=== PATIENT | female | born 1940 | race American Indian/Alaskan Native ===

== ENCOUNTER 2018-07-26 09:09 | Observation (INO) | payer MEDICARE ==
--- NOTE | 2018-07-26 10:52 | Emergency Department Report ---
HPI - General Chief Complaint: Hypoglycemia Time Seen by Provider: 07/26/18 10:21 - HPI HPI: 78-year-old -German female presents to the emergency department via EMS after she had an unresponsive episode this morning. The patient has a past medical history of asthma, hypertension and insulin-dependent diabetes. She took 15 units of her insulin, Humulin 70/30, last night for a blood sugar of about 300. This morning, her grandson found her with some snoring respirations but arousable to the point where she was drowsy and a little confused. They assume that her blood sugar was low so she was given a peppermint and EMS was called. When EMS got there her blood sugar was down at 65. They gave her some. They gave her some peanut butter and jelly, nasreen janice and oral glucose and her blood sugar went up to about 74, 10 minutes later. Patient is currently AAO3 with a complaint of some "heaviness" to the right arm and leg. She denies any headache, vision changes, slurred speech. Her primary care physician is Dr. Socrates Alex. The patient says that she has a normal breakfast but after that usually only has one can of cream of mushroom soup for dinner, and usually skips lunch because she is not hungry. No recent travel or sick contacts at home. ED Past Medical Hx - Past Medical History Previous Medical History?: Yes Hx Hypertension: Yes Hx Diabetes: Yes Hx Asthma: Yes - Surgical History Past Surgical History?: No - Social History Smoking Status: Never Smoker Substance Use Type: None - Medications Home Medications: Home Medications Medication Instructions Recorded Confirmed Last Taken Type ALBUTEROL Inhaler (OR & NICU) 2 puff IH Q6H PRN 07/26/18 07/26/18 Unknown History [Proair] Allopurinol [Zyloprim] 100 mg PO QDAY 07/26/18 07/26/18 Unknown History Atorvastatin (Nf) [Lipitor (Nf)] 10 mg PO DAILY 07/26/18 07/26/18 Unknown History Brimonidine Tartrate/Timolol 1 drop OU BID 07/26/18 07/26/18 Unknown History [Combigan 0.2%-0.5% Eye Drops] Gabapentin [Neurontin] 800 mg PO BID 07/26/18 07/26/18 Unknown History Insulin NPH Hum/Reg Insulin Hm 10 units SUB-Q QAM 07/26/18 07/26/18 Unknown History [Novolin 70-30 100 Unit/ml Vial] Potassium Chloride [K-Dur] 10 meq PO QDAY 07/26/18 07/26/18 Unknown History Spironolactone [Aldactone] 25 mg PO BID 07/26/18 07/26/18 Unknown History Theophylline Anhydrous ER [Theodur] 300 mg PO QDAY 07/26/18 07/26/18 Unknown History Vit B Comp No.3/Folic/C/Biotin 1 each PO QDAY 07/26/18 07/26/18 Unknown History [Gabrielle-Primo Rx Tablet] ED Review of Systems ROS: Stated complaint: HYPOGLYCEMIA Other details as noted in HPI Comment: All other systems reviewed and negative Constitutional: weakness. denies: chills, fever Eyes: denies: eye pain, vision change ENT: denies: ear pain, throat pain Respiratory: denies: cough, shortness of breath Cardiovascular: denies: chest pain, palpitations Gastrointestinal: denies: abdominal pain, vomiting Genitourinary: denies: dysuria, discharge Musculoskeletal: arthralgia (right shoulder). denies: back pain Skin: denies: rash, lesions Neurological: weakness, other (unresponsive episode). denies: headache Physical Exam - Physical Exam Physical Exam: GENERAL: The patient is well-developed well-nourished. HENT: Normocephalic. Atraumatic. Patient has moist mucous membranes. EYES: Extraocular motions are intact. Pupils equal reactive to light bilaterally. No nystagmus. NECK: Supple. Trachea is midline. CHEST/LUNGS: Clear to auscultation. There is no respiratory distress noted. HEART/CARDIOVASCULAR: Regular. There is no tachycardia. There is no murmur. ABDOMEN: Abdomen is soft, nontender. Patient has normal bowel sounds. There is no abdominal distention. SKIN: Skin is warm and dry. NEURO: The patient is awake, alert, and oriented. The patient is cooperative. The patient has no focal neurologic deficits. The patient has normal speech. Cranial nerves II through XII grossly intact. No pronator drift. MUSCULOSKELETAL: There is some mild tenderness to palpation of the right shoul asad. Patient has some chronic decreased left upper extremity extension and abduction. There is some mild right lower extremity weakness lifting the leg above the gurney when compared to the left side. ED Medical Decision Making - Lab Data Result diagrams: 07/26/18 11:08 07/26/18 11:08 - EKG Data -: EKG Interpreted by Me EKG shows normal: sinus rhythm, axis, intervals, QRS complexes (low voltage), ST-T waves Rate: normal - EKG Data When compared to previous EKG there are: previous EKG unavailable Interpretation: normal EKG - Radiology Data Radiology results: report reviewed, image reviewed interpreted by me: Chest x-ray does not show any acute process. There are no pleural effusions, obvious pneumonia and there is no pneumothorax. X-ray of the right shoulder does not show any fracture, dislocation, or any acute process. CT HEAD WITHOUT CONTRAST: HISTORY: Altered mental status. TECHNIQUE: Sequential 2.5mm CT images. COMPARISON: none. FINDINGS: Cerebral Parenchyma: Within normal limits. Cerebellum: Within normal limits. Brainstem: Within normal limits. Ventricles: Normal. Sella: Normal. Extra-axial spaces: Normal. Basal Cisterns: Normal. Intracranial Hemorrhage: None. Midline Shift: None. Calvarium: Normal. Sinuses: Normal. Mastoid Air Cells: Normal. Visualized Orbits: Normal. IMPRESSION: Cranial CT scan within normal limits. Transcribed By: TTR Dictated By: EROS KENNEDY JR, MD Electronically Authenticated By: EROS KENNEDY JR, MD Signed Date/Time: 07/26/18 1317 - Medical Decision Making This patient originally presented after having a transient unresponsive episode that seems like it may be related to some hypoglycemia. The blood sugar was only 65 when EMS arrived the patient says that she was awake and alert enough to eating a peppermint when she thought it may have been secondary to low blood sugar. The patient describes a heaviness to the right arm and leg. She denies any headache, vision changes, slurred speech or any other neurological deficits. On examination the patient does have some right lower extremity weakness when compared to the left. With these findings, and this unresponsive episode, I feel that the patient needs further evaluation. CT scan of the head without contrast did not show any bleed, shift, mass, ischemia, or any other acute process. Her blood sugar has been checked repeatedly and there has been no further episodes of hypoglycemia. Her labs are mostly unremarkable. Patient will be admitted to the hospital for further evaluation and treatment and was accepted for admission with hospitalist, Dr. Baxter. - Differential Diagnosis Hypoglycemia, TIA, CVA, Encephalopathy Critical Care Time: No Critical care attestation.: If time is entered above; I have spent that time in minutes in the direct care of this critically ill patient, excluding procedure time. ED Disposition Clinical Impression: Right sided weakness, Hypoglycemia, Unresponsive episode Disposition: OP ADMIT IP TO THIS HOSP Is pt being admited?: Yes Condition: Fair Time of Disposition: 17:27 - Assessment Assessment Interval: Baseline - Level of Consciousness 1a. Level of Consciousness: alert/keenly responsive - LOC Questions 1b. LOC Questions: answers both correctly - LOC Command 1c. LOC Commands: performs tasks correctly - Best Gaze 2. Best Gaze: normal - Visual 3. Visual: no visual loss - Facial Palsy 4. Facial Palsy: normal symmetrical movement - Motor Arm 5a. Motor Arm Left: no drift 5b. Motor Arm Right: no drift - Motor Leg 6a. Motor Leg Left: no drift 6b. Motor Leg Right: drift - Limb Ataxia 7. Limb Ataxia: absent - Sensory 8. Sensory: normal - Best Language 9. Best Language: no aphasia - Dysarthria 10. Dysarthria: normal - Extinction and Inattention 11. Extinction/Inattention: no abnormality - Scoring Total Score: 1 Stroke Severity: Minor Stroke
[2018-07-26 11:19] LABS: Basophils % (Auto) 0.7 % (0.0-1.8); Eosinophils # (Auto) 0.1 K/mm3 (0.0-0.4); Eosinophils % (Auto) 1.9 % (0.0-4.3); Hematocrit 36.3 % (30.3-42.9); Hemoglobin 11.5 gm/dl (10.1-14.3); Lymphocytes # (Auto) 0.7 K/mm3 (1.2-5.4); Mean Corpuscular HGB Conc 32 % (30-34); Mean Corpuscular Volume 72 fl (79-97); Monocytes # (Auto) 0.2 K/mm3 (0.0-0.8); Monocytes % (Auto) 5.9 % (0.0-7.3); Platelet Count 191 K/mm3 (140-440); Red Blood Count 5.02 M/mm3 (3.65-5.03); Red Cell Distribution Width 16.6 % (13.2-15.2)
--- NOTE | 2018-07-26 11:23 | XRay Report ---
RIGHT SHOULDER, 3 VIEWS: HISTORY: right shoulder pain. Mild osteopenia is suspected. Mild to moderate osteoarthritic changes are identified at the right shoulder. No evidence for displaced fracture, dislocation or ligamentous injury. The soft tissues are unremarkable. IMPRESSION: Osteopenia. Osteoarthritis. No acute process is noted.
--- NOTE | 2018-07-26 11:23 | XRay Report ---
AP CHEST: HISTORY: Altered mental status AP view of the chest demonstrates a normal mediastinal and cardiac contour with clear lungs and normal bony and soft tissue structures. IMPRESSION: No acute cardiopulmonary process.
[2018-07-26 11:30] LABS: INR 1.05 (0.87-1.13); Partial Thromboplastin Time 24.1 Sec. (24.2-36.6)
[2018-07-26] MEDS ORDERED: ANTIVERT PO ONE (11:39)
[2018-07-26] MEDS ORDERED: ANTIVERT ONE (11:43)
[2018-07-26 11:44] LABS: Alanine Aminotransferase 10 units/L (7-56); Albumin 3.3 g/dL (3.9-5); BUN/Creatinine Ratio 13; Blood Urea Nitrogen 10 mg/dL (7-17); Calcium 8.7 mg/dL (8.4-10.2); Hemolysis Index 4
--- NOTE | 2018-07-26 13:22 | Cat Scan Report ---
CT HEAD WITHOUT CONTRAST: HISTORY: Altered mental status. TECHNIQUE: Sequential 2.5mm CT images. COMPARISON: none. FINDINGS: Cerebral Parenchyma: Within normal limits. Cerebellum: Within normal limits. Brainstem: Within normal limits. Ventricles: Normal. Sella: Normal. Extra-axial spaces: Normal. Basal Cisterns: Normal. Intracranial Hemorrhage: None. Midline Shift: None. Calvarium: Normal. Sinuses: Normal. Mastoid Air Cells: Normal. Visualized Orbits: Normal. IMPRESSION: Cranial CT scan within normal limits.
[2018-07-26] MEDS ORDERED: PROVENTIL IH PRN (16:36)
[2018-07-26] MEDS ORDERED: TYLENOL PO PRN (16:36)
[2018-07-26] MEDS ORDERED: ZOFRAN IV PRN ×2 (16:36→17:06)
[2018-07-26] MEDS ORDERED: SODIUM CHLORIDE FLUSH SYRINGE 10 ML IV PRN ×2 (16:36→17:06)
--- NOTE | 2018-07-26 16:42 | History and Physical Report ---
History of Present Illness Chief complaint: My sugar got low History of present illness: 78 YO Female with HTN, DM, Asthma, Obesity Hypoventilation, presents to ED for evaluation. Pt states that she took 15 units of Humulin 70/30 overnight for an elevated blood sugar of about 300. Pt was found by her son upon wakinf from sleep to be confused and stuporous. Pt was given oral glucose load in anticipation of low blood glucose level. EMS was notified, and upon arrival the pataient was found to be in distress. Pt transported to [facility]. Pt seen and evaluated in ED. Upon interview patient reports of Right arm and leg weakness over the past 1 day as well as multiple episodes on acute onset of vision loss over the past 1 week. Pt denies headache, slurred speech, fever, chills, Chest pain, palpitations, NVD, Trauma, or recent ill contacts. Pt found to have symptoms consistent with CVA, and hypoglycemia. Pt admitted to telemetry and initiated on CVA protocol. Pt is outside therapeutic window for TPA. Neurology consulted in ED. Past History Past Medical History: diabetes, hypertension, other (Asthma, Obesity Hypoventilation) Past Surgical History: No surgical history, Other (reviewed) Social history: single. denies: smoking, alcohol abuse, prescription drug abuse Family history: diabetes, hypertension Medications and Allergies Allergies Allergy/AdvReac Type Severity Reaction Status Date / Time No Known Allergies Allergy Unverified 07/26/18 09:22 Home Medications Medication Instructions Recorded Confirmed Last Taken Type ALBUTEROL Inhaler (OR & NICU) 2 puff IH Q6H PRN 07/26/18 07/26/18 Unknown History [Proair] Allopurinol [Zyloprim] 100 mg PO QDAY 07/26/18 07/26/18 Unknown History Atorvastatin (Nf) [Lipitor (Nf)] 10 mg PO DAILY 07/26/18 07/26/18 Unknown History Brimonidine Tartrate/Timolol 1 drop OU BID 07/26/18 07/26/18 Unknown History [Combigan 0.2%-0.5% Eye Drops] Gabapentin [Neurontin] 800 mg PO BID 07/26/18 07/26/18 Unknown History Insulin NPH Hum/Reg Insulin Hm 10 units SUB-Q QAM 07/26/18 07/26/18 Unknown History [Novolin 70-30 100 Unit/ml Vial] Potassium Chloride [K-Dur] 10 meq PO QDAY 07/26/18 07/26/18 Unknown History Spironolactone [Aldactone] 25 mg PO BID 07/26/18 07/26/18 Unknown History Theophylline Anhydrous ER [Theodur] 300 mg PO QDAY 07/26/18 07/26/18 Unknown History Vit B Comp No.3/Folic/C/Biotin 1 each PO QDAY 07/26/18 07/26/18 Unknown History [Gabrielle-Primo Rx Tablet] Active Meds: Active Medications Acetaminophen (Tylenol) 650 mg PO Q4H PRN PRN Reason: Pain MILD(1-3)/Fever >100.5/LAUREANO Albuterol (Proventil) 2.5 mg IH Q4HRT PRN PRN Reason: Shortness Of Breath Allopurinol (Zyloprim) 100 mg PO QDAY [facility] Atorvastatin Calcium (Lipitor) 10 mg PO DAILY [facility] Brimonidine/Timolol (Combigan 0.2-0.5%) drops OU BID [facility] Dextrose/Sodium Chloride (D5/0.45ns) 500 mls @ 42 mls/hr IV DIRECT [facility] Miscellaneous Medication (Gabapentin [Neurontin]) 800 mg PO BID [facility] Miscellaneous Medication (Vit B Comp No.3/Folic/C/Biotin [Gabrielle-Primo Rx Tablet]) 1 each PO QDAY [facility] Ondansetron HCl (Zofran) 4 mg IV Q8H PRN PRN Reason: Nausea And Vomiting Potassium Chloride (K-Dur) 10 meq PO QDAY [facility] Sodium Chloride (Sodium Chloride Flush Syringe 10 Ml) 10 ml IV BID [facility] Sodium Chloride (Sodium Chloride Flush Syringe 10 Ml) 10 ml IV PRN PRN PRN Reason: LINE FLUSH Spironolactone (Aldactone) 25 mg PO BID [facility] Theophylline (Theodur) 300 mg PO QDAY [facility] Review of Systems Constitutional: no weight loss, no weight gain, no fever, no chills Ears, nose, mouth and throat: no ear pain, no ear discharge, no tinnitis, no decreased hearing, no nose pain, no nasal congestion Breasts: no change in shape, no swelling, no mass Cardiovascular: no chest pain, no orthopnea, no edema, no syncope Respiratory: no cough, no cough with sputum, no excessive sputum, no hemoptysis, no shortness of breath Gastrointestinal: no nausea, no vomiting, no constipation, no change in bowel habits, no hematemesis Genitourinary Female: no pelvic pain, no flank pain, no urgency Rectal: no pain, no incontinence, no bleeding Musculoskeletal: no neck stiffness, no neck pain, no shooting arm pain, no arm numbness/tingling, no shooting leg pain Integumentary: no rash, no pruritis, no redness, no sores, no wounds, no jaundice Neurological: weakness, ataxia, gait dysfunction, loss of vision, no tingling, no seizures, no syncope, no tremors Psychiatric: no anxiety, no memory loss, no change in sleep habits, no sleep disturbances, no insomnia, no hypersomnia, no change in appetite, no change in libido Endocrine: no cold intolerance, no heat intolerance, no polyphagia, no excessive thirst, no polyuria, no nocturia, no excessive sweating Hematologic/Lymphatic: no easy bruising, no easy bleeding, no lymphadenopathy, no lymphedema Allergic/Immunologic: no urticaria, no allergic rhinitis, no wheezing, no persistent infections, no anaphylaxis, no angioedema Exam - Constitutional Vitals: Temp Pulse Resp BP Pulse Ox 15 117/87 100 07/26/18 10:52 07/26/18 10:52 07/26/18 10:52 General appearance: Present: mild distress, obese - EENT Eyes: Present: PERRL ENT: hearing intact, clear oral mucosa - Neck Neck: Present: supple, normal ROM - Respiratory Respiratory effort: normal Respiratory: bilateral: CTA - Cardiovascular Heart Sounds: Present: S1 & S2. Absent: rub, click - Extremities Extremities: pulses symmetrical, No edema Peripheral Pulses: within normal limits - Abdominal General gastrointestinal: Present: soft, non-tender, non-distended, normal bowel sounds Female genitourinary: Present: normal - Integumentary Integumentary: Present: clear, warm, dry - Musculoskeletal Musculoskeletal: right sided weakness - Psychiatric Psychiatric: appropriate mood/affect, intact judgment & insight - Neurologic Neurologic: CNII-XII intact, focal deficits, moves all extremities, no gait normal Results - Labs CBC & Chem 7: 07/27/18 04:28 07/27/18 04:28 Labs: Abnormal lab results 07/26/18 07/26/18 07/26/18 Range/Units 10:36 11:08 11:08 WBC 3.9 L (4.5-11.0) K/mm3 MCV 72 L (79-97) fl MCH 23 L (28-32) pg RDW 16.6 H (13.2-15.2) % Lymph # 0.7 L (1.2-5.4) K/mm3 Seg Neutrophils % 73.5 H (40.0-70.0) % APTT 24.1 L (24.2-36.6) Sec. Glucose (65-100) mg/dL POC Glucose 144 H (70-105) Total Protein (6.3-8.2) g/dL Albumin (3.9-5) g/dL 07/26/18 Range/Units 11:08 WBC (4.5-11.0) K/mm3 MCV (79-97) fl MCH (28-32) pg RDW (13.2-15.2) % Lymph # (1.2-5.4) K/mm3 Seg Neutrophils % (40.0-70.0) % APTT (24.2-36.6) Sec. Glucose 125 H (65-100) mg/dL POC Glucose (70-105) Total Protein 6.0 L (6.3-8.2) g/dL Albumin 3.3 L (3.9-5) g/dL Assessment and Plan - Patient Problems (1) CVA (cerebral vascular accident) Current Visit: Yes Status: Suspected Qualifiers: Precerebral and cerebral artery: middle cerebral artery Laterality of affected vessel: left Plan to address problem: CVA Protocol: Admit to Telemetry, CT Head, MRI Brain, MRA Brain, Echo, Carotid Doppler, Neuro checks, Neurology consulted, Antiplatlet therapy, lipid panel, statin therapy, PT/OT/Speech therapy. (2) Diabetes Current Visit: Yes Status: Acute Plan to address problem: ADA diet, insulin, accu check (3) HTN (hypertension) Current Visit: Yes Status: Acute Plan to address problem: Monitor BP q shift, permissive hypertension overnight, supportive care. (4) Asthma Current Visit: Yes Status: Acute Qualifiers: Asthma severity: mild Asthma persistence: intermittent Plan to address problem: supplemental oxygen, nebulizer therapy, supportive care. (5) Shoulder pain, bilateral Current Visit: Yes Status: Acute Plan to address problem: Bilateral shoulder x ray, pain control, Outpatient Ortho F/U care. (6) DVT prophylaxis Current Visit: Yes Status: Acute Plan to address problem: SCD to BLE while in bed,Prophylactic lovenox
[2018-07-26] MEDS ORDERED: D5/0.45NS 500 ML IV SCH (17:00)
[2018-07-26] MEDS ORDERED: PHENERGAN PR PRN (17:06)
[2018-07-26] MEDS ORDERED: DULCOLAX PR PRN (17:06)
[2018-07-26] MEDS ORDERED: REGLAN PO PRN (17:06)
[2018-07-26] MEDS ORDERED: MILK OF MAGNESIA PO PRN (17:06)
--- NOTE | 2018-07-26 17:53 | XRay Report ---
PROCEDURE: XR SHOULDER 2+V LT TECHNIQUE: 3 views HISTORY: pain COMPARISONS: None FINDINGS: Generalized osteopenia. Spurring AC joint. Humeral head is high riding suggesting chronic rotator cuf f tear. No acute fracture IMPRESSION: No acute abnormality High riding humeral head suggesting chronic rotator cuff tear. This document is electronically signed by Bib Singh MD., July 26 2018 05:51:10 PM ET
[2018-07-26] MEDS ORDERED: MORPHINE IV ONE (18:10)
[2018-07-26] MEDS: ALDACTONE PO SCH (22:00)
[2018-07-26] MEDS ORDERED: NON-FORMULARY (Gabapentin [Neurontin] 800 MG) PO SCH (22:00)
[2018-07-26] MEDS: COMBIGAN 0.2-0.5% OU SCH (22:27)
[2018-07-26] MEDS: NEURONTIN PO SCH (22:27)
[2018-07-26] MEDS: SODIUM CHLORIDE FLUSH SYRINGE 10 ML IV SCH (22:29)
[2018-07-27 06:07] LABS: Basophils % (Auto) 0.3 % (0.0-1.8); Eosinophils # (Auto) 0.2 K/mm3 (0.0-0.4); Eosinophils % (Auto) 4.6 % (0.0-4.3); Hemoglobin 10.1 gm/dl (10.1-14.3); Lymphocytes # (Auto) 1.4 K/mm3 (1.2-5.4); Lymphocytes % (Auto) 31.8 % (13.4-35.0); Mean Corpuscular HGB Conc 32 % (30-34); Mean Corpuscular Volume 72 fl (79-97); Monocytes # (Auto) 0.4 K/mm3 (0.0-0.8); Monocytes % (Auto) 9.7 % (0.0-7.3); Platelet Count 169 K/mm3 (140-440); Red Blood Count 4.43 M/mm3 (3.65-5.03)
[2018-07-27 06:24] LABS: BUN/Creatinine Ratio 11; Blood Urea Nitrogen 9 mg/dL (7-17); Calcium 8.3 mg/dL (8.4-10.2); Hemolysis Index 12
--- NOTE | 2018-07-27 08:37 | XRay Report ---
LEFT SHOULDER RADIOGRAPHS INDICATION: Pain. COMPARISON: Right shoulder radiographs from yesterday. FINDINGS: Frontal and Y views of the left shoulder somewhat technically limited, though suggest grossly intact acromioclavicular joint articulation with degenerative spurring. Approximately 3.2 x 1.1 cm ossific/sclerotic density noted medial to the humeral head, possibly related to the glenoid. Humeral head also appears positioned somewhat more medial than usual. Acromiohumeral narrowing also suspected. Osteopenia/osteoporosis. Aortic knob calcifications. Grossly normal imaged scapula and left ribs. Clear left lung. CONCLUSION: 1. Left shoulder degenerative changes noted including AC joint arthropathy and possible rotator cuff pathology. 2. Left humeral head also appears somewhat more medial than usual with subtle subluxation/dislocation not entirely excluded on this limited exam. Please correlate. Thank you for the opportunity to participate in this patient's care.
[2018-07-27] MEDS ORDERED: NON-FORMULARY (Vit B Comp No.3/Folic/C/Biotin [Rena-Vite Rx Tablet] 1 EACH) PO SCH (10:00)
[2018-07-27] MEDS: K-DUR PO SCH (10:05)
[2018-07-27] MEDS: Renal Caps PO SCH (10:05)
[2018-07-27] MEDS: ALDACTONE PO SCH ×2 (10:05→22:17)
[2018-07-27] MEDS: ASPIRIN PO SCH (10:05)
[2018-07-27] MEDS: NEURONTIN PO SCH ×2 (10:05→22:17)
[2018-07-27] MEDS: TYLENOL PO PRN (10:05)
[2018-07-27] MEDS: ZYLOPRIM PO SCH (10:05)
[2018-07-27] MEDS: THEODUR PO SCH (10:09)
[2018-07-27] MEDS: SODIUM CHLORIDE FLUSH SYRINGE 10 ML IV SCH ×2 (10:09→22:19)
[2018-07-27] MEDS: COMBIGAN 0.2-0.5% OU SCH ×2 (10:09→22:24)
[2018-07-27] MEDS ORDERED: ATIVAN IV ONE (12:45)
--- NOTE | 2018-07-27 13:40 | Vascular Lab Report ---
PROCEDURE: VL CAROTID DUPLEX BILAT TECHNIQUE: Duplex Doppler ultrasound of the common, internal and external carotid arteries and the v ertebral arteries was performed bilaterally. Soto scale imaging, velocity spectral waveform analysis, and color flow Doppler were employed. HISTORY: stroke COMPARISONS: None . Note: Measurement of carotid stenosis is based on flow velocity values that correlate with the [place] Symptomatic Carotid Endarterectomy Trial (NASCET) based stenosis criteria using the internal carotid artery diameter as the denominator for stenosis calculation. FINDINGS: RIGHT carotid artery: Velocities: ICA PSV: 101 cm/sec ICA End diastolic: 26 cm/sec CCA PSV: 123 cm/sec IC/CC ratio: 0. 82 Plaque/color flow: Mild heterogeneous plaque without significant spectral broadening or abnormal col or flow . RIGHT vertebral artery: Antegrade systolic and diastolic flow LEFT carotid artery: Velocities: ICA PSV: 108 cm/sec ICA End diastolic: 42 cm/sec CCA PSV: 114 cm/sec IC/CC ratio: 0. 94 Plaque/color flow: Mild heterogeneous plaque without significant spectral broadening or abnormal col or flow . LEFT vertebral artery: Antegrade systolic and diastolic flow IMPRESSION: 1. RIGHT carotid: No hemodynamically significant (less than 50 percent) internal carotid artery king nosis. 2. LEFT carotid: No hemodynamically significant (less than 50 percent) internal carotid artery sten osis. 3. Vertebral arteries: Bilaterally antegrade. This document is electronically signed by Maral Menchaca., July 27 2018 01:37:48 PM ET
--- NOTE | 2018-07-27 14:13 | Progress Note ---
Assessment and Plan (1) CVA (cerebral vascular accident) Current Visit: Yes Status: Suspected Qualifiers: Precerebral and cerebral artery: middle cerebral artery Laterality of affected vessel: left Plan to address problem: CVA unlikely Neuro consult appreciated Rt arm numbness sec to Hypoglycemia and cervical spondylosis (2) Diabetes Current Visit: Yes Status: Acute Plan to address problem: Cont coverage (3) HTN (hypertension) Current Visit: Yes Status: Acute Plan to address problem: Monitor BP q shift, permissive hypertension overnight, supportive care. (4) Asthma Current Visit: Yes Status: Acute Qualifiers: Asthma severity: mild Asthma persistence: intermittent Plan to address problem: supplemental oxygen, nebulizer therapy, supportive care. (5) Shoulder pain, bilateral Current Visit: Yes Status: Acute Plan to address problem: Sec to cervical spondylosis L shoulder subluxation--Ortho consult requested or follow up as out patient (6) DVT prophylaxis Current Visit: Yes Status: Acute Plan to address problem: SCD to BLE while in bed,Prophylactic lovenox Discharge planning issues Probable discharge tomorrow ECHO report pending Subjective Date of service: 07/27/18 Principal diagnosis: Acute CVA Interval history: [place] patient reports of Right arm and leg weakness over the past 2 days as well as multiple episodes on acute onset of vision loss over the past 1 week. Pt denies headache, slurred speech, fever, chills, Chest pain, palpitations, NVD, Trauma, or recent ill contacts. Pt found to have symptoms consistent with CVA, and hypoglycemia. Pt admitted to telemetry and initiated on CVA protocol. Pt is outside therapeutic window for TPA. Neurology consulted in ED No symptoms and signs of weakness now.Says that symptoms have resolved with correction of Hypoglycemia.. Objective - Constitutional Vitals: Vital Signs - 12hr 07/27/18 07/27/18 07/27/18 03:51 04:30 07:18 Temperature 98.5 F 98.3 F Pulse Rate 109 H 103 H Respiratory 20 18 Rate Blood Pressure 107/49 114/61 O2 Sat by Pulse 95 Oximetry General appearance: Present: no acute distress, well-nourished - EENT Eyes: PERRL, EOM intact ENT: hearing intact, clear oral mucosa Ears: bilateral: normal - Neck Neck: supple, normal ROM - Respiratory Respiratory effort: normal Respiratory: bilateral: CTA - Breasts Breasts: normal - Cardiovascular Heart rate: 78 Rhythm: regular Heart Sounds: Present: S1 & S2. Absent: gallop, rub Extremities: pulses intact, No edema, normal color, Full ROM - Gastrointestinal General gastrointestinal: Present: soft, non-tender, non-distended, normal bowel sounds - Genitourinary Female genitourinary: normal - Integumentary Integumentary: clear, warm, dry - Musculoskeletal Musculoskeletal: 1, strength equal bilaterally - Neurologic Neurologic: moves all extremities, gait normal - Psychiatric Psychiatric: memory intact, appropriate mood/affect, intact judgment & insight - Allied health notes Allied health notes reviewed: nursing, case management - Labs CBC & Chem 7: 07/27/18 04:28 07/27/18 04:28 Labs: Abnormal lab results 07/26/18 07/26/18 07/27/18 Range/Units 18:24 22:14 04:28 WBC 4.3 L (4.5-11.0) K/mm3 MCV 72 L (79-97) fl MCH 23 L (28-32) pg RDW 16.0 H (13.2-15.2) % [place] % (Auto) 9.7 H (0.0-7.3) % Eos % (Auto) 4.6 H (0.0-4.3) % Glucose (65-100) mg/dL POC Glucose 130 H 244 H (70-105) Calcium (8.4-10.2) mg/dL 07/27/18 07/27/18 07/27/18 Range/Units 04:28 07:47 12:07 WBC (4.5-11.0) K/mm3 MCV (79-97) fl MCH (28-32) pg RDW (13.2-15.2) % [place] % (Auto) (0.0-7.3) % Eos % (Auto) (0.0-4.3) % Glucose 147 H (65-100) mg/dL POC Glucose 122 H 158 H (70-105) Calcium 8.3 L (8.4-10.2) mg/dL MRI Brain IMPRESSION: There is age-appropriate involutional change. There is no hemorrh age, edema, mass, mass effect or midline shift. There is no acute ischemic injury. . MRA IMPRESSION: Normal Examination . CDS IMPRESSION: 1. RIGHT carotid: No hemodynamically significant (less than 50 percent) internal carotid artery stenosis. 2. LEFT carotid: No hemodynamically significant (less than 50 percent) internal carotid artery stenosis. 3. Vertebral arteries: Bilaterally antegrade. Param Shoulder IMPRESSION: No acute abnormality High riding humeral head suggesting chronic rotator cuff tear. L shoulder CONCLUSION: 1. Left shoulder degenerative changes noted including AC joint arthropathy and possible rotator cuff pathology. 2. Left humeral head also appears somewhat more medial than usual with subtle subluxation/dislocation not entirely excluded on this limited exam. Please correlate.
[2018-07-27] MEDS ORDERED: ATIVAN IV SCH (18:00)
--- NOTE | 2018-07-27 18:29 | Consultation ---
Past History Past Medical History: diabetes, hypertension, other (Asthma, Obesity Hypoventilation) Past Surgical History: No surgical history, Other (reviewed) Social history: single. denies: smoking, alcohol abuse, prescription drug abuse Family history: diabetes, hypertension Medications and Allergies Allergies Allergy/AdvReac Type Severity Reaction Status Date / Time No Known Allergies Allergy Unverified 07/26/18 09:22 Home Medications Medication Instructions Recorded Confirmed Last Taken Type ALBUTEROL Inhaler (OR & NICU) 2 puff IH Q6H PRN 07/26/18 07/26/18 Unknown History [Proair] Allopurinol [Zyloprim] 100 mg PO QDAY 07/26/18 07/26/18 Unknown History Atorvastatin (Nf) [Lipitor (Nf)] 10 mg PO DAILY 07/26/18 07/26/18 Unknown History Brimonidine Tartrate/Timolol 1 drop OU BID 07/26/18 07/26/18 Unknown History [Combigan 0.2%-0.5% Eye Drops] Gabapentin [Neurontin] 800 mg PO BID 07/26/18 07/26/18 Unknown History Insulin NPH Hum/Reg Insulin Hm 10 units SUB-Q QAM 07/26/18 07/26/18 Unknown History [Novolin 70-30 100 Unit/ml Vial] Potassium Chloride [K-Dur] 10 meq PO QDAY 07/26/18 07/26/18 Unknown History Spironolactone [Aldactone] 25 mg PO BID 07/26/18 07/26/18 Unknown History Theophylline Anhydrous ER [Theodur] 300 mg PO QDAY 07/26/18 07/26/18 Unknown History Vit B Comp No.3/Folic/C/Biotin 1 each PO QDAY 07/26/18 07/26/18 Unknown History [Gabrielle-Primo Rx Tablet] Active Meds: Active Medications Acetaminophen (Tylenol) 650 mg PO Q4H PRN PRN Reason: Pain, Mild (1-3) Last Admin: 07/27/18 10:05 Dose: 650 mg Documented by: Albuterol (Proventil) 2.5 mg IH Q4HRT PRN PRN Reason: Shortness Of Breath Allopurinol (Zyloprim) 100 mg PO QDAY [facility] Last Admin: 07/27/18 10:05 Dose: 100 mg Documented by: Aspirin (Aspirin) 325 mg PO QDAY [facility] Last Admin: 07/27/18 10:05 Dose: 325 mg Documented by: Atorvastatin Calcium (Lipitor) 40 mg PO QHS [facility] Last Admin: 07/26/18 22:27 Dose: 40 mg Documented by: Bisacodyl (Dulcolax) 10 mg SD QDAY PRN PRN Reason: Constipation Brimonidine/Timolol (Combigan 0.2-0.5%) 1 drops OU BID [facility] Last Admin: 07/27/18 10:09 Dose: 1 drops Documented by: Enoxaparin Sodium (Lovenox) 40 mg SUB-Q QDAY@2200 [place]IN Gabapentin (Neurontin) 800 mg PO BID [facility] Last Admin: 07/27/18 10:05 Dose: 800 mg Documented by: Dextrose/Sodium Chloride (D5/0.45ns) 500 mls @ 42 mls/hr IV DIRECT CHIN Lorazepam (Ativan) 1 mg IV ONCE [facility] Stop: 07/27/18 23:00 Magnesium Hydroxide (Milk Of Magnesia) 30 ml PO Q4H PRN PRN Reason: Constipation Metoclopramide HCl (Reglan) 10 mg PO Q6H PRN PRN Reason: Nausea And Vomiting Multivit/Ca Carb/B Cmplx/FA/Prenat (Renal Caps) 1 cap PO QDAY [facility] Last Admin: 07/27/18 10:05 Dose: 1 cap Documented by: Ondansetron HCl (Zofran) 4 mg IV Q8H PRN PRN Reason: Nausea And Vomiting Potassium Chloride (K-Dur) 10 meq PO QDAY [facility] Last Admin: 07/27/18 10:05 Dose: 10 meq Documented by: Promethazine HCl (Phenergan) 25 mg SD Q6H PRN PRN Reason: Nausea And Vomiting Sodium Chloride (Sodium Chloride Flush Syringe 10 Ml) 10 ml IV BID [facility] Last Admin: 07/27/18 10:09 Dose: 10 ml Documented by: Sodium Chloride (Sodium Chloride Flush Syringe 10 Ml) 10 ml IV PRN PRN PRN Reason: LINE FLUSH Spironolactone (Aldactone) 25 mg PO BID [facility] Last Admin: 07/27/18 10:05 Dose: 25 mg Documented by: Theophylline (Theodur) 300 mg PO QDAY [facility] Last Admin: 07/27/18 10:09 Dose: 300 mg Documented by: Physical Examination - Vital Signs Vital Signs: Vital Signs Pulse Resp BP Pulse Ox 88 18 117/87 99 07/26/18 10:38 07/26/18 10:38 07/26/18 10:38 07/26/18 10:38 Results - Laboratory Findings CBC and BMP: 07/27/18 04:28 07/27/18 04:28 Abnormal Lab Findings: Abnormal Labs 07/26/18 07/26/18 07/26/18 10:36 11:08 11:08 WBC 3.9 L MCV 72 L MCH 23 L RDW 16.6 H [place] % (Auto) Eos % (Auto) Lymph # 0.7 L Seg Neutrophils % 73.5 H APTT 24.1 L Glucose POC Glucose 144 H Calcium Total Protein Albumin 07/26/18 07/26/18 07/26/18 11:08 18:24 22:14 WBC MCV MCH RDW [place] % (Auto) Eos % (Auto) Lymph # Seg Neutrophils % APTT Glucose 125 H POC Glucose 130 H 244 H Calcium Total Protein 6.0 L Albumin 3.3 L 07/27/18 07/27/18 07/27/18 04:28 04:28 07:47 WBC 4.3 L MCV 72 L MCH 23 L RDW 16.0 H [place] % (Auto) 9.7 H Eos % (Auto) 4.6 H Lymph # Seg Neutrophils % APTT Glucose 147 H POC Glucose 122 H Calcium 8.3 L Total Protein Albumin 07/27/18 07/27/18 12:07 16:29 WBC MCV MCH RDW [place] % (Auto) Eos % (Auto) Lymph # Seg Neutrophils % APTT Glucose POC Glucose 158 H 247 H Calcium Total Protein Albumin Assessment and Plan This 78-year-old female with a history of hypertension and asthma and insulin- dependent diabetes mellitus who found her blood sugar to be 300 on the night of 07/25/2018. Patient had taken additional unit of insulin such as 15 unit, Humulin 70/30 after she found the blood sugar to be high.Next morning she was performed to be lethargic and confused by her grandson. Grandson called EMS and when they came they found her blood sugar to be 65. EMS gave her glucose, generally and soft drink which contained glucose. About 10 minutes later her mental status improved she became alert and oriented 3, however she complained of heaviness in the right side for which she was brought to the emergency. In the emergency she was found to be alert and appropriate, a CT scan of the brain is ordered which did not show any acute infarct or any acute hemorrhage. Patient was admitted to the floor for further workup of stroke. Patient states that heart heaviness in the right upper extremity has improved significantly however she continues to feel numb on the right lower extremity. She denied any associated state speech difficulty with associated right upper and lower extremity weakness. Physical examination.. Patient is alert and appropriate has insight into her problems and answers questions appropriately. Heart. Normal rate and rhythm. Carotids ; Both were palpable, no bruit. Cranial nerves. Cranial nerves are normal. Patient did not have any facial asymmetry, facial weakness or numbness on either side of the face. Extraocular movement was intact pupils reacted to light and accommodation. Patient can swallow. Other cranial nerves are within normal limit. Motor: Patient has normal strength in both upper extremities at the time of my examination both distally and proximally, did not have any pronator drift. In the lower extremity she was found to have weak dorsiflexion of the right foot and also weak plantar flexion of the right foot. Extension of the big toe was also weak on the right side. Reflexes. Patient had absent right ankle reflex. Reflexes in the upper extremities are symmetrical. Sensory. Patient had decreased sensation to pinprick on the right L5 and S1 dermatome as well as decreased sensation to pinprick on right C6 and C7 dermatomes. Straight leg raising ( SLR).. Was limited to 45 on the right side. Impression. #1 patient right-sided numbness which has improved significantly since onset could be secondary to hypoglycemia. Hypoglycemia is also known to produce focal symptoms at time mimicking stroke. #2. The patient seems to have cervical spondylosis contributing to right sided numbness which was apparent on neurological examina tion, such as decreased sensation to pinprick on right C6 and C7 dermatomes. #3. Patient also has right lumbosacral radiculopathy involving right L5 and S1 nerve roots could be due to disc protrusion at that level. Recommendations. Since patient is not interested in surgical intervention even if her MRI shows a disc protrusion I do not see any need for MRI of the lumbar spine. However she should begin in physical therapy and she should be advised to avoid pushing pulling and lifting more than 15-20 pounds and should avoid prolonged sitting and prolonged standing.
--- NOTE | 2018-07-27 21:35 | Magnetic Resonance Report ---
PROCEDURE: MR MRA/MRV HEAD WO CON TECHNIQUE: Axial 3-D [id number] MR angiography of the [place] and brain was performed. The source images were reconstructed in various views using maximum intensity projection. HISTORY: stroke COMPARISONS: None . FINDINGS: Vertebral arteries: Normal . Basilar artery: Normal . Internal carotid arteries: Normal . Anterior cerebral arteries: Normal . Middle cerebral arteries: Normal . Posterior cerebral arteries: Normal . Branch occlusions: None . Vascular malformations: None . IMPRESSION: Normal Examination . This document is electronically signed by Abhijeet Harrington MD., July 27 2018 09:34:00 PM ET
--- NOTE | 2018-07-27 21:39 | Magnetic Resonance Report ---
PROCEDURE: MR BRAIN WO CON TECHNIQUE: Magnetic resonance imaging of the brain was performed without contrast material. HISTORY: stroke COMPARISONS: None . FINDINGS: Skull base and calvarium: Normal . Paranasal sinuses: The visualized paranasal sinuses are clear. Cerebellum: No evidence of hemorrhage, ischemia or mass . Brainstem: No evidence of hemorrhage, ischemia or mass . Cerebrum: No evidence of hemorrhage, ischemia or mass . Ventricles: There is mild central and cortical atrophy. There is no hydrocephalus or asymmetry. . Pituitary gland and sella: Normal . Globes and orbits: Normal . Vasculature: Normal arterial and venous flow voids. Other: Diffusion images demonstrate no evidence of acute ischemic event. . IMPRESSION: There is age-appropriate involutional change. There is no hemorrhage, edema, mass, mass e ffect or midline shift. There is no acute ischemic injury. . This document is electronically signed by Abhijeet Harrington MD., July 27 2018 09:37:38 PM ET
[2018-07-27] MEDS ORDERED: LOVENOX SUB-Q SCH (22:00)
[2018-07-28] MEDS: COMBIGAN 0.2-0.5% OU SCH (09:12)
[2018-07-28] MEDS: THEODUR PO SCH (09:13)
[2018-07-28] MEDS: ZYLOPRIM PO SCH (09:13)
[2018-07-28] MEDS: TYLENOL PO PRN (09:13)
[2018-07-28] MEDS: NEURONTIN PO SCH (09:14)
[2018-07-28] MEDS: K-DUR PO SCH (09:14)
[2018-07-28] MEDS: Renal Caps PO SCH (09:14)
[2018-07-28] MEDS: ASPIRIN PO SCH (09:14)
--- NOTE | 2018-07-28 11:45 | Discharge Summary ---
Providers - Providers Date of Admission: 07/26/18 16:36 Attending physician: VISHAL RUSSELL MD 07/26/18 17:07 Occupational Therapy Evaluate and Treat [CONS] Routine Comment: Reason For Exam: Neuro deficits Physical Therapy Evaluation and Treat [CONS] Routine Comment: Reason For Exam: Neuro deficits Speech Therapy Evaluation and Treat [CONS] Routine Reason For Exam: swallow eval 07/26/18 20:44 Consult to Physician [CONS] Routine Comment: Consulting Provider: TIFFANY PENA Physician Instructions: Reason For Exam: CVA [facility] Hospital[facility] Condition: Fair Hospital course: 78-year-old woman who presented to the hospital with low blood glucose after she took insulins without eating. There was concern for possible stroke because she was having right-sided weakness. Imaging was not consistent with stroke. She was seen by neurologist, who believes her symptoms are due to cervical radiculopathy. The patient declined getting any therapy and was discharged home. She was counseled on safety with use of insulin. She was then taken off insulin and put on oral medications, she had good glycemic control with oral medications. Diagnoses Cervical radiculopathy Hypoglycemia due to insulins Disposition: [id number]/[place]-03 [facility] Time spent for discharge: 33 mins Core Measure Documentation - Palliative Care Palliative Care/ Comfort Measures: Not Applicable - Core Measures Any of the following diagnoses?: none Exam - Constitutional Vitals: Temp Pulse Resp BP Pulse Ox 98.0 F 95 H 18 95/52 97 07/28/18 08:02 07/28/18 08:02 07/28/18 08:02 07/28/18 08:02 07/28/18 08:02 General appearance: Present: no acute distress, well-nourished - EENT Eyes: Present: PERRL ENT: hearing intact, clear oral mucosa - Neck Neck: Present: supple, normal ROM - Respiratory Respiratory effort: normal Respiratory: bilateral: CTA - Cardiovascular Heart Sounds: Present: S1 & S2. Absent: rub, click - Extremities Extremities: pulses symmetrical, No edema Peripheral Pulses: within normal limits - Abdominal General gastrointestinal: Present: soft, non-tender, non-distended, normal bowel sounds Female genitourinary: Present: normal - Integumentary Integumentary: Present: clear, warm, dry - Musculoskeletal Musculoskeletal: gait normal, strength equal bilaterally - Psychiatric Psychiatric: appropriate mood/affect, intact judgment & insight - Neurologic Neurologic: CNII-XII intact, moves all extremities Plan [facility]Primary Care Provider[facility] - 3-5 Days Prescriptions: Sitagliptin Phos/Metformin HCl [Janumet 50-500 mg Tablet] 1 each PO BIDAC #60 tablet
[2018-07-28 11:50] VITALS: BP 96/51
[2018-07-28] MEDS: ALDACTONE PO SCH (11:54)
[2018-07-28] MEDS: SODIUM CHLORIDE FLUSH SYRINGE 10 ML IV SCH (11:54)
== END 2018-07-28 17:28 ==
LOC: ED 09:09 → 2B-ACE 16:36 → 4A 17:35
PROVIDERS: ADMIT Internal Medicine; ATTEND Internal Medicine
DX: I63.9 Cerebral infarction, unspecified (principal); I10 Essential (primary) hypertension; J45.909 Unspecified asthma, uncomplicated; M25.512 Pain in left shoulder; M25.511 Pain in right shoulder; E66.9 Obesity, unspecified; E11.649 Type 2 diabetes mellitus with hypoglycemia without coma; Z79.899 Other long term (current) drug therapy
CPT/HCPCS: 36415; 70450; 70544; 70551; 71045; 73030; 80048; 80053; 82962; 84443; 84484; 85025; 85610; 85730; 92610; 93005; 93010; 93306; 93880; 96372; 96374; 97110; 97161; 97165; 99284; A9270; G0378; J1650; J2060